=== PATIENT | female | born 1980 | race Caucasian/White ===

== ENCOUNTER 2017-06-08 20:19 | Inpatient (IN) | payer SELFPAY ==
[~2017-06-08] VITALS: Ht 165.1 cm; Wt 61.2 kg
--- NOTE | 2017-06-08 20:27 | ER Report ---
History and Physical Time Seen By MD: 20:26 Hx. of Stated Complaint: Asking for detox (DREW GREEN) HPI/ROS she is a chronic alcoholic has been drinking off and on for 16 years as been through detox once in the past not at this facility states that she drinks whiskey daily quantifies it is 4-5 drinks, last drank 30 minutes prior coming to the emergency room (DREW GREEN) Allergies: Coded Allergies: ondansetron (Verified Allergy, Unknown, 06/08/17) Home Meds Reported Medications Trazodone Hcl (TRAZODONE HCL) 50 Mg Tablet, 25 MG PO QHS 06/08/17 Fluoxetine Hcl (FLUOXETINE HCL) 20 Mg Capsule, 20 MG PO QDAY, CAPSULE 06/08/17 Chlordiazepoxide Hcl (CHLORDIAZEPOXIDE HCL) 10 Mg Capsule, 20 MG PO, CAPSULE 06/08/17 Discontinued Reported Medications Chlordiazepoxide Hcl (CHLORDIAZEPOXIDE HCL) 10 Mg Capsule, 10 MG PO, CAPSULE 06/08/17 Trazodone Hcl (TRAZODONE HCL) 50 Mg Tablet, 50 MG PO QHS 06/08/17 Past Medical/Surgical History History of cervical cancer, alcohol abuse, pancreatitis (DREW GREEN) Reviewed Nurses Notes: Yes Old Medical Records Reviewed: Yes (DREW GREEN) Exposure to Second Hand Smoke?: No Hx Substance Use Disorder: No Hx Alcohol Use: Yes (DREW GREEN) Constitutional Vital Sign - Last 24 Hours 06/08/17 06/08/17 06/08/17 06/08/17 20:43 20:43 20:51 21:00 Temp 98.6 Pulse 73 Resp 20 B/P (MAP) 95/73 107/79 (88) 105/72 (83) Pulse Ox 90 O2 Delivery Room Air O2 Flow Rate 2.0 06/08/17 06/08/17 06/08/17 06/08/17 21:04 21:15 21:20 21:25 Pulse 82 66 79 B/P (MAP) 88/56 (67) Pulse Ox 94 93 89 06/08/17 06/08/17 06/08/17 06/08/17 21:30 21:35 21:40 21:45 Pulse 91 64 63 65 B/P (MAP) 99/66 (77) 100/68 (79) Pulse Ox 91 97 95 95 06/08/17 06/08/17 06/08/17 06/08/17 21:50 21:55 22:00 22:15 Pulse 82 63 59 114 B/P (MAP) 101/58 (72) 128/91 (103) Pulse Ox 98 98 98 91 06/08/17 06/08/17 06/08/17 06/08/17 22:20 22:25 22:30 22:35 Pulse 82 89 99 B/P (MAP) 106/72 (83) Pulse Ox 92 85 90 95 06/08/17 06/08/17 06/08/17 06/08/17 22:40 22:45 22:50 22:55 Pulse 111 83 82 80 B/P (MAP) 101/67 (78) Pulse Ox 93 95 91 89 06/08/17 06/08/17 06/08/17 06/08/17 23:00 23:05 23:10 23:15 Pulse 69 72 105 104 B/P (MAP) 95/63 (74) 104/63 (77) Pulse Ox 91 92 92 93 06/08/17 06/08/17 23:20 23:25 Pulse 92 74 Pulse Ox 94 94 (MIROSLAVA FAIRCHILD DO) Physical Exam 36 year old alert anxious alcohol on breath, karen, neck supple , hrr, lungs cta , and soft bs x4 (DREW GREEN) Medical Decision Making Data Points Result Diagram: 06/09/1751706/09/17517 Laboratory Hematology Test 06/08/17 00:00 06/08/17 20:59 06/08/17 21:37 06/08/17 22:16 Amylase Level < 30 U/L (0-110) Lipase 58 U/L (23-300) Red Blood Count 4.58 M/uL (4.17-5.56) Mean Corpuscular Volume 99.0 fL (80.0-96.0) Mean Corpuscular Hemoglobin 33.7 pg (26.0-33.0) Mean Corpuscular Hemoglobin Concent 34.1 g/dL (32.0-36.0) Red Cell Distribution Width 13.7 % (11.5-14.5) Mean Platelet Volume 8.2 fL (7.2-11.1) Neutrophils (%) (Auto) 58.2 % (39.4-72.5) Lymphocytes (%) (Auto) 30.9 % (17.6-49.6) Monocytes (%) (Auto) 9.5 % (4.1-12.4) Eosinophils (%) (Auto) 0.5 % (0.4-6.7) Basophils (%) (Auto) 0.9 % (0.3-1.4) Nucleated RBC Relative Count (auto) 0.0 /100WBC Neutrophils # (Auto) 4.6 K/uL (2.0-7.4) Lymphocytes # (Auto) 2.4 K/uL (1.3-3.6) Monocytes # (Auto) 0.7 K/uL (0.3-1.0) Eosinophils # (Auto) 0.0 K/uL (0.0-0.5) Basophils # (Auto) 0.1 K/uL (0.0-0.1) Nucleated RBC Absolute Count (auto) 0.00 K/uL Sodium Level 150 mmol/L (137-145) Potassium Level 3.6 mmol/L (3.5-5.0) Chloride Level 107 mmol/L (98-107) Carbon Dioxide Level 25 mmol/L (22-31) Blood Urea Nitrogen 11 mg/dl (7-18) Creatinine 0.80 mg/dl (0.52-1.04) Glomerular Filtration Rate Calc > 60.0 Random Glucose 104 mg/dl (75-110) Calcium Level 8.5 mg/dl (8.4-10.2) Magnesium Level 1.6 mg/dl (1.7-2.2) Total Bilirubin 0.2 mg/dl (0.2-1.3) Aspartate Amino Transf (AST/SGOT) 82 U/L (0-35) Alanine Aminotransferase (ALT/SGPT) 59 U/L (0-56) Alkaline Phosphatase 84 U/L (0-126) Total Protein 8.0 gm/dl (6.3-8.2) Albumin 4.4 g/dl (3.5-5.0) Salicylates Level < 10 mg/L Salicylate Last Dose Date unk Acetaminophen Level < 10 ug/ml Serum Alcohol 419 mg/dl Urine Color Yellow Urine Clarity Cloudy Urine pH 5.0 pH (4.8-9.5) Urine Specific [place] 1.015 Urine Protein 30 mg/dL (NEGATIVE) Urine Glucose (UA) Negative mg/dL (NEGATIVE) Urine Ketones Trace mg/dL (NEGATIVE) Urine Blood Negative (NEGATIVE) Urine Nitrite Positive (NEGATIVE) Urine Bilirubin Negative (NEGATIVE) Urine Urobilinogen Negative mg/dL (0.2-1.9) Urine Leukocyte Esterase Moderate (NEGATIVE) Urine RBC 1 /HPF (0-2/HPF) Urine WBC 11 /HPF (0-5/HPF) Urine Squamous Epithelial Cells Many /LPF (</=FEW) Urine Bacteria Few /HPF (NONE-FEW) Urine Mucus Few /HPF (NONE-FEW) Urine HCG, Qualitative Negative (NEGATIVE) Urine Opiates Screen Negative Urine Barbiturates Screen Negative Ur Tricyclic Antidepressants Screen Negative Urine Phencyclidine Screen Negative Urine Amphetamines Screen Negative Urine Benzodiazepines Screen Negative Urine Cocaine Screen Negative Urine Cannabinoids Screen Negative Chemistry Test 06/08/17 00:00 06/08/17 20:59 06/08/17 21:37 06/08/17 22:16 Amylase Level < 30 U/L (0-110) Lipase 58 U/L (23-300) White Blood Count 7.8 k/uL (4.5-11.0) Red Blood Count 4.58 M/uL (4.17-5.56) Hemoglobin 15.5 g/dL (12.0-16.0) Hematocrit 45.4 % (34.0-47.0) Mean Corpuscular Volume 99.0 fL (80.0-96.0) Mean Corpuscular Hemoglobin 33.7 pg (26.0-33.0) Mean Corpuscular Hemoglobin Concent 34.1 g/dL (32.0-36.0) Red Cell Distribution Width 13.7 % (11.5-14.5) Platelet Count 170 K/uL (150-450) Mean Platelet Volume 8.2 fL (7.2-11.1) Neutrophils (%) (Auto) 58.2 % (39.4-72.5) Lymphocytes (%) (Auto) 30.9 % (17.6-49.6) Monocytes (%) (Auto) 9.5 % (4.1-12.4) Eosinophils (%) (Auto) 0.5 % (0.4-6.7) Basophils (%) (Auto) 0.9 % (0.3-1.4) Nucleated RBC Relative Count (auto) 0.0 /100WBC Neutrophils # (Auto) 4.6 K/uL (2.0-7.4) Lymphocytes # (Auto) 2.4 K/uL (1.3-3.6) Monocytes # (Auto) 0.7 K/uL (0.3-1.0) Eosinophils # (Auto) 0.0 K/uL (0.0-0.5) Basophils # (Auto) 0.1 K/uL (0.0-0.1) Nucleated RBC Absolute Count (auto) 0.00 K/uL Glomerular Filtration Rate Calc > 60.0 Calcium Level 8.5 mg/dl (8.4-10.2) Magnesium Level 1.6 mg/dl (1.7-2.2) Total Bilirubin 0.2 mg/dl (0.2-1.3) Aspartate Amino Transf (AST/SGOT) 82 U/L (0-35) Alanine Aminotransferase (ALT/SGPT) 59 U/L (0-56) Alkaline Phosphatase 84 U/L (0-126) Total Protein 8.0 gm/dl (6.3-8.2) Albumin 4.4 g/dl (3.5-5.0) Salicylates Level < 10 mg/L Salicylate Last Dose Date unk Acetaminophen Level < 10 ug/ml Serum Alcohol 419 mg/dl Urine Color Yellow Urine Clarity Cloudy Urine pH 5.0 pH (4.8-9.5) Urine Specific [place] 1.015 Urine Protein 30 mg/dL (NEGATIVE) Urine Glucose (UA) Negative mg/dL (NEGATIVE) Urine Ketones Trace mg/dL (NEGATIVE) Urine Blood Negative (NEGATIVE) Urine Nitrite Positive (NEGATIVE) Urine Bilirubin Negative (NEGATIVE) Urine Urobilinogen Negative mg/dL (0.2-1.9) Urine Leukocyte Esterase Moderate (NEGATIVE) Urine RBC 1 /HPF (0-2/HPF) Urine WBC 11 /HPF (0-5/HPF) Urine Squamous Epithelial Cells Many /LPF (</=FEW) Urine Bacteria Few /HPF (NONE-FEW) Urine Mucus Few /HPF (NONE-FEW) Urine HCG, Qualitative Negative (NEGATIVE) Urine Opiates Screen Negative Urine Barbiturates Screen Negative Ur Tricyclic Antidepressants Screen Negative Urine Phencyclidine Screen Negative Urine Amphetamines Screen Negative Urine Benzodiazepines Screen Negative Urine Cocaine Screen Negative Urine Cannabinoids Screen Negative Toxicology Test 06/08/17 20:59 06/08/17 21:37 06/08/17 22:16 Salicylates Level < 10 mg/L Salicylate Last Dose Date unk Acetaminophen Level < 10 ug/ml Serum Alcohol 419 mg/dl Urine Opiates Screen Negative Urine Barbiturates Screen Negative Ur Tricyclic Antidepressants Screen Negative Urine Phencyclidine Screen Negative Urine Amphetamines Screen Negative Urine Benzodiazepines Screen Negative Urine Cocaine Screen Negative Urine Cannabinoids Screen Negative Urinalysis Test 06/08/17 22:16 Urine Color Yellow Urine Clarity Cloudy Urine pH 5.0 pH (4.8-9.5) Urine Specific [place] 1.015 Urine Protein 30 mg/dL (NEGATIVE) Urine Glucose (UA) Negative mg/dL (NEGATIVE) Urine Ketones Trace mg/dL (NEGATIVE) Urine Blood Negative (NEGATIVE) Urine Nitrite Positive (NEGATIVE) Urine Bilirubin Negative (NEGATIVE) Urine Urobilinogen Negative mg/dL (0.2-1.9) Urine Leukocyte Esterase Moderate (NEGATIVE) Urine RBC 1 /HPF (0-2/HPF) Urine WBC 11 /HPF (0-5/HPF) Urine Squamous Epithelial Cells Many /LPF (</=FEW) Urine Bacteria Few /HPF (NONE-FEW) Urine Mucus Few /HPF (NONE-FEW) Urine HCG, Qualitative Negative (NEGATIVE) (MIROSLAVA FAIRCHILD DO) ED Course/Re-evaluation Clinical Indication for ER IV: Hydration ED Course Patient received a liter normal saline IV flush banana bag to follow that R waiting toxicology screen I have transportation over to Dr. Fairchild to be admitted to feel she's been admitted medical floor he'll call hospitalist for admission 1 toxicology report Re-evaluation After normal saline 1 L bolus blood pressure 116/74 Decision to Disposition Date: Jun 08, 2017 Decision to Disposition Time: 23:20 (DREW GREEN) Clinical Indication for ER IV: Hydration, IV Access ED Course Patient was minute to an examination room. H&P was done. The differential diagnoses was considered. On conical examination, patient appears grossly alcohol intoxicated. She is requesting admission for detox. Patient is a long- term alcoholic since age 16. She's been through detox once in [place], [place]. She is obviously relapse. She drinks admittedly 4-5 large strong liquor drinks per day. Tonight she had her last alcohol just prior to arrival. Her blood alcohol returns at 472. She is later found to have a bottle of alcohol in her bed. Which is, skated. A repeat blood alcohol is drawn. Repeat alcohol is down to 419. Patient is significantly sedated and lethargic secondary to her eye alcohol level. I do not think she is appropriate admission to behavioral health at this time. Will admit her to the medical service. Her case was discussed with Dr. Kelly hospitalist on-call. 06/08/2017 11:09:13 pm case discussed with Dr. Kelly hospitalist on-call, who accepts the patient for admission for medical detox. Decision to Disposition Date: Jun 08, 2017 Decision to Disposition Time: 23:06 (MIROSLAVA FAIRCHILD DO) Depart Departure Latest Vital Signs Vital Signs Date Time Temp Pulse Resp B/P (MAP) Pulse Ox O2 Delivery O2 Flow Rate FiO2 06/08/17 23:25 74 94 06/08/17 23:15 104/63 (77) 06/08/17 20:43 98.6 20 Room Air 06/08/17 20:43 2.0 (MIROSLAVA FAIRCHILD DO) Impression: Primary Impression: Alcohol abuse Additional Impressions: Hypernatremia Abnormal LFTs Urinary tract infection Condition: Condition Unchanged Disposition: Admitted from ER Problem Qualifiers Additional Impressions: Urinary tract infection Urinary tract infection type: acute cystitis Hematuria presence: without hematuria Qualified Codes: N30.00 - Acute cystitis without hematuria DREW GREEN Jun 08, 2017 20:27 MIROSLAVA FAIRCHILD DO Jun 08, 2017 23:07
[2017-06-08] MEDS ORDERED: THIAMINE HCL(*) 200 MG/2 ML IN 100 MG, FOLIC ACID(*) 50 MG/10 ML INJ 1 MG, MULTIVITAMIN... IV ONE (20:30)
[2017-06-08 21:09] LABS: PLATELET COUNT, AUTOMATED 170 K/uL (150-450)
[2017-06-08] MEDS ORDERED: NS(*) 0.9% 1000 ML BAG 1,000 ML IV ONE (21:25)
[2017-06-08] MEDS ORDERED: CHL10 PO ×2 (22:03)
[2017-06-08] MEDS ORDERED: TRAZ-156 PO ×2 (22:03→23:01)
[2017-06-08] MEDS ORDERED: FLUO-177 PO (22:03)
[2017-06-09 00:04] VITALS: BP 107/74
[2017-06-09] MEDS ORDERED: NS(*) 0.9% 1000 ML BAG 1,000 ML IV PRN (01:04)
[2017-06-09] MEDS ORDERED: INFLUENZA VIRUS VAC 0.5 ML SYR IM ONLY ONE (01:05)
[2017-06-09] MEDS ORDERED: DIAZEPAM 10 MG TAB PO PRN (01:05)
--- NOTE | 2017-06-09 01:19 | History & Physical ---
History of Present Illness Chief Complaint Alcohol detox History of Present Illness This patient presented to the emergency room requesting admission to [facility] for alcohol detox. She reports drinking 4-5 glasses of whiskey for the last 16 years. History Problems: (1) Cervical cancer Home Meds Reported Medications Trazodone Hcl (TRAZODONE HCL) 50 Mg Tablet, 25 MG PO QHS 06/08/17 Fluoxetine Hcl (FLUOXETINE HCL) 20 Mg Capsule, 20 MG PO QDAY, CAPSULE 06/08/17 Chlordiazepoxide Hcl (CHLORDIAZEPOXIDE HCL) 10 Mg Capsule, 20 MG PO, CAPSULE 06/08/17 Discontinued Reported Medications Chlordiazepoxide Hcl (CHLORDIAZEPOXIDE HCL) 10 Mg Capsule, 10 MG PO, CAPSULE 06/08/17 Trazodone Hcl (TRAZODONE HCL) 50 Mg Tablet, 50 MG PO QHS 06/08/17 Allergies: Coded Allergies: ondansetron (Verified Allergy, Unknown, 06/08/17) Patient History: FH: alcoholism FATHER MOTHER BROTHER OR SISTER Hx Smoking: Yes (1/2ppd ) Smoking Status: Current: Every Day Smoker Exposure to Second Hand Smoke?: No Hx Alcohol Use: Yes Alcohol Use: Currently Alcohol Used: Liquor Alcohol Withdrawl Symptoms: Agitation Hx Substance Use Disorder: No Review of Systems All Systems Reviewed/Normal: Yes Exam Vital Signs Vital Signs Date Time Temp Pulse Resp B/P (MAP) Pulse Ox O2 Delivery O2 Flow Rate FiO2 06/09/17 00:45 86 06/09/17 00:04 97.9 73 16 107/74 (85) Room Air Neuro: No Gross deficits Eyes: PERRLA Cardiovascular: Regular Rate and Rhythm Respiratory: Clear to Auscultation GI: Abd Soft and Non-Tender Extremities: No Edema Integumentary: No Cyanosis Medical Decision Making Data Points Result Diagram: 06/08/17205806/08/172058 Item Value Date Time Urine HCG, Qualitative Negative 06/08/172215 Magnesium Level 1.6 mg/dl L 06/08/172058 Serum Alcohol 472 mg/dl *H 06/08/172058 Serum Alcohol 419 mg/dl *H 06/08/172136 Assessment and Plan Problems: (1) Alcohol abuse Status: Acute Assessment & Plan: She did present requesting alcohol detoxification, but has been placed on the medical floor for clearance prior to transferring to [facility]. We have placed her on CIWA protocol and started treatment with thiamine. (2) Urinary tract infection Status: Acute Assessment & Plan: Her initial urine showed nitrates and leukocytes, but was a contaminated sample. A repeat UA and culture have been ordered. We have started her on empiric treatment with ciprofloxacin. (3) Hypomagnesemia Assessment & Plan: She did receive a banana bag in the emergency department. A repeat magnesium level is ordered for the morning. (4) Hypernatremia Status: Acute Assessment & Plan: She has been placed on IV fluids and a repeat chemistry is ordered for the morning. Venous Thromboembolism Antithrombotics Is Pt On Any Antithrombotics?: No Exam Sepsis Risk: No Definite Risk Problem Qualifiers (1) Urinary tract infection: Urinary tract infection type: acute cystitis Hematuria presence: without hematuria Qualified Codes: N30.00 - Acute cystitis without hematuria MORIAH SMALL DO Jun 09, 2017 01:19
[2017-06-09 03:24] VITALS: BP 84/57
[2017-06-09 05:42] LABS: PLATELET COUNT, AUTOMATED 128 K/uL (150-450)
[2017-06-09] MEDS ORDERED: NICOTINE INH SYSTEM 10 MG/INH INH PRN (07:15)
[2017-06-09] MEDS ORDERED: NICOTINE CARTRIDGE 1 EA PO PRN (07:15)
[2017-06-09 07:23] VITALS: BP 110/79
[2017-06-09] MEDS ORDERED: CIPROFLOXACIN 500 MG TAB PO SCH (07:30)
[2017-06-09] MEDS: FOLIC ACID 1 MG TAB PO SCH (08:27)
[2017-06-09] MEDS: THIAMINE HCL 200 MG/2 ML INJ IVP SCH (08:28)
[2017-06-09] MEDS ORDERED: LORazepam 2 MG/ML VIAL IVP PRN (08:45)
[2017-06-09] MEDS ORDERED: KCL (*) 20 MEQ/100 ML PREMIX 100 ML IV SCH (08:45)
[2017-06-09] MEDS: DIAZEPAM 10 MG TAB PO PRN ×3 (08:58→12:29)
[2017-06-09 11:51] VITALS: BP 136/91
[2017-06-09] MEDS ORDERED: PROMETHAZINE 25 MG/ML 1 ML AMP IVP PRN (13:40)
[2017-06-09] MEDS: DIAZEPAM 10 MG/2 ML SYR IVP PRN ×5 (13:57→20:29)
[2017-06-09] MEDS ORDERED: KCL (*) 20 MEQ/100 ML PREMIX 100 ML IV ONE (14:15)
[2017-06-09 15:24] VITALS: BP 146/99
[2017-06-09 16:14] VITALS: Ht 165.1 cm; Wt 61.2 kg
[2017-06-09 20:26] VITALS: BP 140/111
[2017-06-10 00:03] VITALS: BP 143/100
[2017-06-10] MEDS: DIAZEPAM 10 MG/2 ML SYR IVP PRN ×3 (00:06→07:41)
[2017-06-10 05:46] VITALS: BP 155/100
[2017-06-10 06:19] LABS: PLATELET COUNT, AUTOMATED 142 K/uL (150-450)
[2017-06-10 06:28] LABS: INR 0.95
[2017-06-10 07:29] VITALS: BP 152/106
[2017-06-10] MEDS: FOLIC ACID 1 MG TAB PO SCH (08:28)
[2017-06-10] MEDS: THIAMINE HCL 200 MG/2 ML INJ IVP SCH (08:28)
[2017-06-10] MEDS ORDERED: MAGNESIUM SUL* 2 GM/50 ML IVPB 50 ML IVPB ONE (09:30)
--- NOTE | 2017-06-10 11:24 | Hospitalist Progress Note ---
Subjective Progress Notes Subjective She reports feeling much improved this AM. She was able to sleep last PM. We discussed her plan for maintaining abstinence. She states she has counselors in [place], [place] she has been working with to get placement in an alcohol treatment program. Unfortunately, it has been difficult due to financial problems. Physical Exam Vital Signs Date Time Temp Pulse Resp B/P (MAP) Pulse Ox O2 Delivery O2 Flow Rate FiO2 06/10/17 07:58 94 06/10/17 07:55 Room Air 06/10/17 07:29 98.3 88 16 152/106 (121) 06/09/17 11:51 1.0 Intake and Output 06/11/17 07:00 Intake Total 500 ml Balance 500 ml Intake Oral 500 ml # Voids 2 # Bowel Movements 1 General Appearance: Alert, Awake, Other (mildly tremulous) Neuro: No Gross deficits Eyes: PERRLA Cardiovascular: Regular Rate and Rhythm Respiratory: Clear to Auscultation GI: Soft and Non-Tender Extremities: Warm, Perfused Psych: Alert & Oriented X3 Result Diagram: 06/10/17 0540 06/10/17 0540 Item Value Date Time Albumin 3.5 g/dl 06/10/17 0540 Total Protein 6.5 gm/dl 06/10/17 0540 Alkaline Phosphatase 81 U/L 06/10/17 0540 Alanine Aminotransferase (ALT/SGPT) 57 U/L H 06/10/17 0540 Aspartate Amino Transf (AST/SGOT) 55 U/L H 06/10/17 0540 Total Bilirubin 0.8 mg/dl 06/10/17 0540 Magnesium Level 1.6 mg/dl L 06/10/17 0540 Assessment and Plan Problems: (1) Alcohol abuse Status: Acute Assessment & Plan: She did present requesting alcohol detoxification. We have placed her on CIWA protocol and started treatment with thiamine. She has received a fair amount of diazepam in the past 24hrs, but appears to be doing well. At this point, will place her on diazepam 10mg QID scheduled and plan on a weaning schedule over the next several days. She does have a plan in place for her ongoing care and maintenance of abstinence. (2) Urinary tract infection Status: Acute Assessment & Plan: Her initial urine showed nitrates and leukocytes, but was a contaminated sample. A repeat UA was similar. Urine culture is growing a GNR. We have started her on empiric treatment with ciprofloxacin. (3) Hypomagnesemia Assessment & Plan: She is still slightly low. Will repeat replacement with IV form and start oral magnesium. (4) Hypernatremia Status: Acute Assessment & Plan: Resolved with IV fluids. Exam Sepsis Risk: No Definite Risk Problem Qualifiers (1) Urinary tract infection: Urinary tract infection type: acute cystitis Hematuria presence: without hematuria Qualified Codes: N30.00 - Acute cystitis without hematuria IZAIAH CUMMINGS MD Jun 10, 2017 11:24
[2017-06-10 12:20] VITALS: BP 155/109
[2017-06-10] MEDS ORDERED: DIAZEPAM 10 MG TAB PO SCH (13:00)
[2017-06-10 15:09] VITALS: BP 138/112
[2017-06-10] MEDS ORDERED: DIAZ-311 PO (15:12)
[2017-06-10] MEDS ORDERED: POTA-53 PO (15:12)
[2017-06-10] MEDS ORDERED: MAGN400T4 PO (15:12)
[2017-06-10] MEDS ORDERED: CIPR-214 PO (15:12)
--- NOTE | 2017-06-10 15:17 | Hospitalist Depart ---
Discharge Summary Reason for Hosp/Final Diag: (1) Alcohol abuse Status: Acute Hospital Course & Plan: She did present requesting alcohol detoxification. We placed her on CIWA protocol and started treatment with benzodiazepines as needed and B vitamin supplements. She received a fair amount of diazepam in the first 24hrs. She appeared to be doing well. We then placed her on diazepam 10mg QID scheduled and plan on a weaning schedule over the next several days. She has been working with counselors in [place], [place] and has a plan in place for her ongoing care and maintenance of abstinence. She will follow up with her counselor within the next 3-4 days. She will return to the ER if any problems. (2) Urinary tract infection Status: Acute Hospital Course & Plan: Her initial urine showed nitrates and leukocytes, but was a contaminated sample. A repeat UA was similar. Urine culture is growing a GNR. We have started her on empiric treatment with ciprofloxacin. She will need a follow up UA in approximately 1-2 weeks. (3) Hypomagnesemia Hospital Course & Plan: She was given replacement with IV and oral magnesium. She will continue on oral magnesium for the next week. (4) Hypernatremia Status: Acute Hospital Course & Plan: Resolved with IV fluids. Departure Weight (Pounds): 135 Result Diagram: 06/10/1753906/10/17539 Item Value Date Time White Blood Count 7.8 k/uL 06/08/172058 Hematocrit 45.4 % 06/08/172058 Hemoglobin 15.5 g/dL 06/08/172058 Platelet Count 170 K/uL 06/08/172058 Sodium Level 150 mmol/L H 06/08/172058 Potassium Level 3.6 mmol/L 06/08/172058 Chloride Level 107 mmol/L 06/08/172058 Carbon Dioxide Level 25 mmol/L 06/08/172058 Blood Urea Nitrogen 11 mg/dl 06/08/172058 Creatinine 0.80 mg/dl 06/08/172058 Glomerular Filtration Rate Calc > 60.0 06/08/172058 Random Glucose 104 mg/dl 06/08/172058 Calcium Level 8.5 mg/dl 06/08/172058 Magnesium Level 1.6 mg/dl L 06/08/172058 Total Bilirubin 0.2 mg/dl 06/08/172058 Aspartate Amino Transf (AST/SGOT) 82 U/L H 06/08/172058 Alanine Aminotransferase (ALT/SGPT) 59 U/L H 06/08/172058 Alkaline Phosphatase 84 U/L 06/08/172058 Total Protein 8.0 gm/dl 06/08/172058 Albumin 4.4 g/dl 06/08/172058 Thyroid Stimulating Hormone (TSH) 1.35 uIU/ml 06/08/172058 Albumin 3.5 g/dl 06/10/17539 Total Protein 6.5 gm/dl 06/10/17 0540 Alkaline Phosphatase 81 U/L 06/10/17 0540 Alanine Aminotransferase (ALT/SGPT) 57 U/L H 06/10/17 0540 Aspartate Amino Transf (AST/SGOT) 55 U/L H 06/10/17 0540 Total Bilirubin 0.8 mg/dl 06/10/17 0540 Magnesium Level 1.6 mg/dl L 06/10/17 0540 Magnesium Level 2.3 mg/dl H 06/09/17 0518 Urine Mucus Few /HPF 06/09/17 0720 Urine Bacteria Negative /HPF 06/09/17 0720 Urine Transitional Epithelial Cells Few /LPF 06/09/17 0720 Urine Squamous Epithelial Cells Many /LPF H 06/09/17 0720 Urine WBC 8 /HPF 06/09/17 0720 Urine RBC <1 /HPF 06/09/1720 Urine Leukocyte Esterase Negative 06/09/1720 Urine Urobilinogen Negative mg/dL 06/09/17719 Urine Bilirubin Negative 06/09/1720 Urine Nitrite Positive H 06/09/1720 Urine Blood Negative 06/09/17 0720 Urine Ketones Trace mg/dL 06/09/17719 Urine Glucose (UA) Negative mg/dL 06/09/17719 Urine Protein 30 mg/dL 06/09/17 07 Urine Specific [place] 1.020 06/09/17 0720 Urine pH 5.0 pH 06/09/17 0720 Urine Clarity Slightly-cloudy 06/09/17719 Urine Color Yellow 06/09/17 0720 Urine Color Yellow 06/08/176 Urine Clarity Cloudy 06/08/172215 Urine pH 5.0 pH 06/08/172215 Urine Specific [place] 1.015 06/08/172215 Urine Protein 30 mg/dL 06/08/172215 Urine Glucose (UA) Negative mg/dL 06/08/172215 Urine Ketones Trace mg/dL 06/08/172215 Urine Blood Negative 06/08/172215 Urine Nitrite Positive H 06/08/172215 Urine Bilirubin Negative 06/08/172215 Urine Urobilinogen Negative mg/dL 06/08/172215 Urine Leukocyte Esterase Moderate H 06/08/172215 Urine RBC 1 /HPF 06/08/172215 Urine WBC 11 /HPF 06/08/172215 Urine Squamous Epithelial Cells Many /LPF H 06/08/172215 Urine Bacteria Few /HPF 06/08/172215 Urine Mucus Few /HPF 06/08/172215 Urine HCG, Qualitative Negative 06/08/172215 Prothrombin Time 12.6 seconds 06/10/17 0540 Prothromb Time International Ratio 0.95 06/10/17 0540 Serum Alcohol 472 mg/dl *H 06/08/172058 Serum Alcohol 419 mg/dl *H 06/08/172136 Salicylates Level < 10 mg/L 06/08/172058 Acetaminophen Level < 10 ug/ml 06/08/172058 Urine Cannabinoids Screen Negative 06/08/172215 Urine Cocaine Screen Negative 06/08/172215 Urine Benzodiazepines Screen Negative 06/08/172215 Urine Amphetamines Screen Negative 06/08/172215 Urine Phencyclidine Screen Negative 06/08/172215 Urine Barbiturates Screen Negative 06/08/172215 Ur Tricyclic Antidepressants Screen Negative 06/08/172215 Urine Opiates Screen Negative 06/08/172215 [facility] [address] [place] [address] LIANNA ZEE M.D., DIRECTOR OF LABORATORY SERVICES CLEO WOODRUFF M.D., PATHOLOGIST RUN DATE: 06/10/17 Specimen Inquiry Report PAGE 1 RUN TIME: 0947 PATIENT: ARETHA NAILS ACCT: [id number] LOC: MED U : [id number] AGE/SX: 36/F [facility] REG : 06/08/[address]: MORIAH SMALL DO : 1980 BED: 280 DIS : STATUS: ADM Fish TLOC: SPEC #: [id number] KENTRELL: 06/09/17 STATUS: RES REQ #: [id number] RECD: 06/09/[address]: MORIAH SMALL DO SOURCE: CCMS ENTR: 06/09/17 VISHNU FLORES: SPDES: ORDERED: CULT URINE COMMENTS: Has specimen been collected/obtained? Y Procedure Result Verified URINE CULTURE Preliminary 06/10/17 Organism 1 GRAM NEGATIVE MAI >100,000 COL/ML ID AND SENSITIVITY TO FOLLOW Condition: Improved Discharge: Home, Self Care Follow-Up Labs: Other (UA with culture, Magnesium level, Comprehensive metabolic panel in 1-2 weeks.) Time Spent: > 30 min Discharge Instructions Home Meds Active Scripts Magnesium Oxide (MAG-OXIDE) 400 Mg Tablet, 400 MG PO BID, #14 TAB 0 Refills Prov:IZAIAH CUMMINGS MD 06/10/17 Diazepam (DIAZEPAM) 10 Mg Tablet, 10 MG PO QID, #14 TAB 0 Refills One tab four times a day for two days, then one tab three times a day for one day, then one tab twice a day for one day, then one tab a day for one day then stop. Prov:IZAIAH CUMMINGS MD 06/10/17 Ciprofloxacin Hcl (CIPROFLOXACIN HCL) 500 Mg Tablet, 250 MG PO BIDAC, #10 TAB 0 Refills Prov:IZAIAH CUMMINGS MD 06/10/17 Reported Medications Trazodone Hcl (TRAZODONE HCL) 50 Mg Tablet, 25 MG PO QHS 06/08/17 Fluoxetine Hcl (FLUOXETINE HCL) 20 Mg Capsule, 20 MG PO QDAY, CAPSULE 06/08/17 Discontinued Reported Medications Chlordiazepoxide Hcl (CHLORDIAZEPOXIDE HCL) 10 Mg Capsule, 20 MG PO, CAPSULE 06/08/17 Chlordiazepoxide Hcl (CHLORDIAZEPOXIDE HCL) 10 Mg Capsule, 10 MG PO, CAPSULE 06/08/17 Trazodone Hcl (TRAZODONE HCL) 50 Mg Tablet, 50 MG PO QHS 06/08/17 Diet: Regular Activity: As Tolerated Special Instructions: Follow up with Primary Care Physician in 1-2 weeks. Follow up with substance abuse counselor in next 3-4 days or sooner if any problems. Venous Thromboembolism Antithrombotics Is Pt On Any Antithrombotics?: No Problem Qualifiers (1) Urinary tract infection: Urinary tract infection type: acute cystitis Hematuria presence: without hematuria Qualified Codes: N30.00 - Acute cystitis without hematuria IZAIAH CUMMINGS MD Jun 10, 2017 15:17
[2017-06-10] MEDS ORDERED: CIPROFLOXACIN 500 MG TAB PO SCH (16:30)
[2017-06-10] MEDS ORDERED: MAGNESIUM OXIDE 400 MG TAB PO SCH (21:00)
== END 2017-06-10 15:13 | disposition home or self-care (01) | DRG 897 ==
LOC: EDBD 20:19 → ER 20:49 → INTOOBSV 23:27 → OBSVTOIN 23:27 → MED 23:27 → UNDOADMIN 23:27 → UNDODISIN 06-10 15:12
PROVIDERS: ADMIT Family Medicine; ATTEND Family Medicine
DX: F10.230 Alcohol dependence with withdrawal, uncomplicated (principal); E87.0 Hyperosmolality and hypernatremia; N30.00 Acute cystitis without hematuria; E83.42 Hypomagnesemia; F17.210 Nicotine dependence, cigarettes, uncomplicated; Y90.8 Blood alcohol level of 240 mg/100 ml or more; Z85.41 Personal history of malignant neoplasm of cervix uteri; Z88.8 Allergy status to other drugs, medicaments and biological substances
CPT/HCPCS: 36415; 80305; 80320; 80329; 81001; 81025; 82040; 82150; 82247; 82310; 82374; 82435; 82565; 82947; 83690; 83735; 84075; 84132; 84155; 84295; 84443; 84450; 84460; 84520; 85025; 85610; 87077; 87088; 87186; 96365; 96366; 99285; G0378; J2550; J3360; J3411; J3475; J3480; J7030